=== PATIENT | male | born 1995 | race Caucasian/White ===

== ENCOUNTER 2023-06-21 08:00 | Outpatient (AMB) | payer OTHER, SELFPAY ==
--- NOTE | 2023-06-21 08:12 | MHC.OFFVIS ---
Intake Vital Signs 06/21/23 08:14 Height 6 ft 2 in Weight 219 lb 2 oz BMI 28.1 BP 120/72 Blood Pressure Location Lt brachial Position Sitting Pulse 70 Pulse Source Pulse Oximeter Pulse Oximetry (%) 99 Oxygen Delivery Method Room Air Intake Visit Reasons: [employer] EPILEPSY -Confirmed Intake Note: NPV for Epilepsy Train Planner Required: No Allergies Penicillins Allergy (Unknown, Verified 06/21/23 08:12) Unknown HPI HPI Comments History of Present Illness Details 28 y/o male patient presents for new in-person visit to manage seizure. He has been following with neurologist in the past, but haven't seen his neurologist since Aug, 2021 due to his insurance issue. Pt reports that his first seizure was 8 years old. Pt reports family hx of seizure. His father had seizure, but his seizure complete went away when he was 16 and he is not on any seizure medications. Pt's seizure mostly tonic-clonic seizure, but it last usually less than 30 sec. He has aura, light headedness, dizziness and can't control his body and lost consciousness. The last seizure was 2 years ago. He did not have injury or hospitalized. He is on topiramate 200 mg BID, and compliant with his medication. Pt reports he had a MRI and EEG done He was a full term baby, graduate high school. Pt also reports headache. He feels constant tightness around his head. It is not painful, but he can be very dizzy. He needs to stop what he is doing for couple of minutes when he has headache and dizziness. He talks himself and calm him down, and his dizziness and head tightness usually resolves. Pt reports he drinks alcohol, beer 2-3 cans and 1-2 shots of rum every other weekend. Recently stopped smoking cigarets, but still smokes marijuana two times a day. He sleeps well from 10 pm to 4 am. His work schedule is 5 am-9 pm, he works at [employer] and [employer] until 9 pm. He drives. [facility] Family History (Updated 03/28/23 @ 09:58 by Andreina Knox [facility]) Mother Diabetes Father Diabetes Social History (Updated 06/21/23 @ 08:14 by Zulema Davis [facility]) Alcohol intake: current Alcohol intake frequency: holidays/special occasions only Patient Tobacco Use Status: Former Tobacco user Substance Use Type: Marijuana Review of Systems Const All systems reviewed & are unremarkable except as noted in HPI and below ENT Reports Normal hearing present Neuro Reports Normal hearing present Physical Exam Vital Signs: Last Vital Signs Pulse 70 06/21/23 08:14 BP 120/72 06/21/23 08:14 Pulse Ox 99 06/21/23 08:14 Oxygen Delivery Method Room Air 06/21/23 08:14 BMI result Body Mass Index 28.1 Const General: cooperative Nutritional Appearance: overweight Orientation/consciousness: patient oriented x3 Neck Neck: Yes full ROM and Yes supple Resp Effort & Inspection: normal respiratory effort and able to speak in complete sentences Neuro General: patient oriented x3 and gait normal Cranial nerves: Yes Bilaterally intact EOM present, Yes Normal facial strength present, Yes Midline tongue present, Yes Symmetric palate elevation present, Yes Normal hearing present, Yes Ability to bilaterally rotate head present and Yes Ability to bilaterally elevate shoulders present Cognition (Neuro): normal cognition Gait exam (Neuro): Normal gait present Motor exam (neuro): 5/5 motor strength present throughout, Pronator motor function not present and no tremor noted Deep tendon reflexes (DTR's): Rt Biceps (C5, C6): 2+, Left biceps reflex intensity grade: 2+, Right brachioradialis reflex intensity grade: 2+, Left brachioradialis reflex intensity grade: 2+, Right patellar reflex intensity grade: 2+ and Left patellar reflex intensity grade: 2+ Psych Appearance: grossly normal Mental Status: mental status grossly normal Speech and movement: Normal speech and movement present Affect: normal affect Attitude: cooperative Assessment & Plan Assessment & Plan (1) Seizure: Code(s): R56.9 - Unspecified convulsions (2) Headache: Code(s): R51.9 - Headache, unspecified (3) Dizziness: Code(s): R42 - Dizziness and giddiness Plan Advised patient to continue to take topiramate 200 mg BID. Stressed compliance. Will check labs CBC, CMP. Advised patient to undergo EEG and brain MRI to obtain his baseline for seizure, dizziness and headache. Advised patient to try magnesium 400 mg qHS and vitamin B2, 400 mg q daily for headache prevention. Advised patient to cut down alcohol intake and marijuana use. Orders: Orders EEG electroencephalogram Today R56.9 - Unspecified convulsions MR head/brain wo con Today R42 - Dizziness and giddiness, R51.9 - Headache, unspecified, R56.9 - Unspecified convulsions Complete Blood Count Auto Diff Today R42 - Dizziness and giddiness, R51.9 - Headache, unspecified, R56.9 - Unspecified convulsions Comprehensive Met. Panel Today R42 - Dizziness and giddiness, R51.9 - Headache, unspecified, R56.9 - Unspecified convulsions Medications: New topiramate 200 mg PO BID 60 tabs 6RF 30 days riboflavin (vitamin B2) 400 mg PO DAILY 30 tabs 6RF 30 days magnesium oxide 400 mg PO DAILY 30 tabs 6RF 30 days Coding Level of Care Code New Pt Level 4 (86938) Diagnoses Seizure R56.9 Headache R51.9 Dizziness R42
[2023-06-21 08:14] VITALS: BP 120/72; PULSE 70; O2SAT 99; BMI 28.1
== END 2023-06-21 09:12 | disposition home or self-care (01) ==
PROVIDERS: Visit Provider Nurse Practitioner Family
DX: R56.9 Unspecified convulsions (principal); R51.9 Headache, unspecified; R42 Dizziness and giddiness
CPT/HCPCS: 99204

== ENCOUNTER → 2023-06-21 08:00 | Outpatient (BNVA) | payer OTHER, SELFPAY | PROVIDERS: Visit Provider Nurse Practitioner Family ==

== ENCOUNTER 2023-07-24 12:53 | Outpatient (REF) | payer OTHER, SELFPAY ==
--- NOTE | 2023-07-24 12:58 | EEG_ITS ---
FINDINGS: The waking background activity consists of a moderate voltage 8 to 9 hertz posterior alpha frequency intermixed anteriorly with low-voltage fast frequencies. Recurrent isolated spikes and spike in slow waves are seen with muscle in the right frontal and occasionally in the left frontal region and sometimes synchronously over both hemispheres. Photic stimulation is without activation. Hyperventilation was omitted. No sleep stages are identified. IMPRESSION: This is an abnormal EEG consistent with a seizure disorder with a seizure focus in the frontal lobe, most likely in the right hemisphere with bilateral spread. Clinical correlation is suggested. MD CONRADO Martinez/SHANTAL / [id number]
== END 2023-07-24 12:54 | disposition home or self-care (01) ==
LOC: HO.NEURO 12:53
PROVIDERS: Visit Provider Nurse Practitioner Family
DX: R56.9 Unspecified convulsions (principal)
CPT/HCPCS: 95816

== ENCOUNTER 2023-07-30 19:38 | Outpatient (REF) | payer OTHER, SELFPAY ==
--- NOTE | ~2023-07-30 | MR_ITS ---
EXAMINATION: MRI BRAIN WITHOUT CONTRAST CLINICAL INFORMATION: Dizziness. COMPARISON: No relevant prior imaging. TECHNIQUE: Multiplanar MR imaging of the brain was performed without contrast. FINDINGS: Dedicated coronal oblique imaging through the temporal lobes reveal symmetric size, signal intensity, and morphological appearance of the hippocampal formations. No identifiable malformation of cortical development. There is no intracranial mass effect or midline shift. No abnormal extra-axial collection. Lateral and third ventricles are normal. No hydrocephalus. Midline structures including the cervicomedullary junction are normal. No acute bone marrow signal changes. There is no acute territorial infarct. No pathological magnetic susceptibility artifact. Intracranial vascular flow voids are maintained. There is no mastoid or middle ear effusion. [id number] paranasal sinus disease primarily affecting the ethmoid air cells and the alveolar recesses of the maxillary sinuses. Globes and orbits are symmetric. MR/MR head/brain wo con IMPRESSION: Normal brain MRI.
== END 2023-07-30 19:39 | disposition home or self-care (01) ==
LOC: HO.MRI 19:38
PROVIDERS: Visit Provider Nurse Practitioner Family
DX: R42 Dizziness and giddiness (principal); R51.9 Headache, unspecified; R56.9 Unspecified convulsions
CPT/HCPCS: 70551

== ENCOUNTER 2023-08-31 15:24 | Outpatient (AMB) | payer OTHER, SELFPAY ==
[2023-08-31 15:34] VITALS: BP 118/80; PULSE 97; O2SAT 98; BMI 28.9
--- NOTE | 2023-08-31 15:34 | MHC.OFFVIS ---
Intake Vital Signs 08/31/23 15:34 Height 6 ft 2 in Weight 225 lb 2 oz BMI 28.9 BP 118/80 Blood Pressure Location Rt brachial Position Sitting Pulse 97 Pulse Source Pulse Oximeter Pulse Oximetry (%) 98 Oxygen Delivery Method Room Air Intake Visit Reasons: 2 mnts f/u appt/ Confirmed Intake Note: Pt presents to the office today for a 2 month follow up for dizziness. Allergies Penicillins Allergy (Unknown, Verified 08/31/23 15:37) Unknown HPI HPI Comments History of Present Illness Details 28 y/o male patient presents for follow up of seizure and headache. Pt reports no breakthrough seizure, and he is compliant with his medications. The last seizure was 2 years ago. He did not have injury or hospitalized. He is on topiramate 200 mg BID. He tried keppra, depakote and other liquid medication, but his seizure was not controlled, and had multiple seizures a month. When he had seizure, he was restless, did not know what to do, kept walking around and had a tonic clonic seizure. EEG result reviewed. This is an abnormal EEG consistent with a seizure disorder with a seizure focus in the frontal lobe, most likely in the right hemisphere with bilateral spread. Brain MRI was normal. Pt reports his headache frequency and intensity has improved almost 50 %. He can have light headache and lack of sleep usually triggers headache. He is on Magnesium 400 mg and vitamin B2 400 mg. He sleeps well from 10 pm to 4 am. His work schedule is 5 am-5 pm, he works at [employer] and [employer] until 9 pm. He drives. Pt reports he reduce the alcohol intake. Recently stopped smoking cigarets, but still smokes marijuana two times a day. [facility] Family History Mother Diabetes Father Diabetes Social History Alcohol intake: current Alcohol intake frequency: holidays/special occasions only Patient Tobacco Use Status: Former Tobacco user Substance Use Type: Marijuana Review of Systems Const All systems reviewed & are unremarkable except as noted in HPI and below ENT Reports Normal hearing present Neuro Reports Normal hearing present Physical Exam Vital Signs: Last Vital Signs Pulse 97 08/31/23 15:34 BP 118/80 08/31/23 15:34 Pulse Ox 98 08/31/23 15:34 Oxygen Delivery Method Room Air 08/31/23 15:34 BMI result Body Mass Index 28.9 Const General: cooperative Nutritional Appearance: overweight Orientation/consciousness: patient oriented x3 Neck Neck: Yes full ROM and Yes supple Resp Effort & Inspection: normal respiratory effort and able to speak in complete sentences Neuro General: patient oriented x3 and gait normal Cranial nerves: Yes Bilaterally intact EOM present, Yes Normal facial strength present, Yes Midline tongue present, Yes Symmetric palate elevation present, Yes Normal hearing present, Yes Ability to bilaterally rotate head present and Yes Ability to bilaterally elevate shoulders present Cognition (Neuro): normal cognition Gait exam (Neuro): Normal gait present Motor exam (neuro): 5/5 motor strength present throughout, Pronator motor function not present and no tremor noted Deep tendon reflexes (DTR's): Rt Biceps (C5, C6): 2+, Left biceps reflex intensity grade: 2+, Right brachioradialis reflex intensity grade: 2+, Left brachioradialis reflex intensity grade: 2+, Right patellar reflex intensity grade: 2+ and Left patellar reflex intensity grade: 2+ Psych Appearance: grossly normal Mental Status: mental status grossly normal Speech and movement: Normal speech and movement present Affect: normal affect Attitude: cooperative Assessment & Plan Assessment & Plan (1) Seizure: Code(s): R56.9 - Unspecified convulsions (2) Headache: Code(s): R51.9 - Headache, unspecified (3) Dizziness: Code(s): R42 - Dizziness and giddiness Plan Advised patient to continue to take topiramate 200 mg BID. Start gabapentin 300 mg TID, along with topiramate. Stressed compliance. Monitor seizure, any side effects, including mood changes and drowsiness. Will check labs CBC, CMP. Continue to take magnesium 400 mg qHS and vitamin B2, 400 mg q daily for headache prevention. Advised patient to cut down alcohol intake and marijuana use. Medications: New gabapentin 300 mg PO TID 30 days 90 caps 6RF Changed From riboflavin (vitamin B2) 400 mg PO DAILY 30 days 30 tabs 6RF To riboflavin (vitamin B2) 400 mg PO DAILY 90 days 90 tabs 1RF Coding Level of Care Code Est Pt Level 4 (75702) Diagnoses Seizure R56.9 Headache R51.9 Dizziness R42
== END 2023-08-31 15:50 | disposition home or self-care (01) ==
PROVIDERS: Visit Provider Nurse Practitioner Family
DX: R56.9 Unspecified convulsions (principal); R51.9 Headache, unspecified; R42 Dizziness and giddiness
CPT/HCPCS: 99214

== ENCOUNTER → 2023-08-31 15:24 | Outpatient (BNVA) | payer OTHER, SELFPAY | PROVIDERS: Visit Provider Nurse Practitioner Family ==